=== PATIENT | male | born 1990 | race Caucasian/White ===

== ENCOUNTER 2019-01-25 19:22 | Emergency (ER) | payer OTHER ==
[~2019-01-25] VITALS: Ht 188 cm; Wt 192.8 kg
[2019-01-25] MEDS ORDERED: IV NORMAL SALINE 1000ML BAG 1,000 ML IV ONE (19:30)
[2019-01-25 19:45] LABS: BASO % 1 % (0-3); EOS # 0.1 x10^3/uL (0.0-0.7); EOS % 2 % (0-3); HEMATOCRIT 40.5 % (39.0-53.0); HEMOGLOBIN 13.9 g/dL (13.0-17.5); LYMPH # 1.7 x10^3/uL (1.0-4.8); LYMPH % 26 % (24-48); MEAN CORPUSCULAR HEMOGLOBIN 29 pg (25-35); MEAN CORPUSCULAR HGB CONC 34 g/dL (31-37); MEAN CORPUSCULAR VOLUME 83 fL (79-100); MONO # 0.6 x10^3/uL (0.0-1.1); MONO % 9 % (0-9); NEUT # 3.9 x10^3/uL (1.8-7.7); NEUT % 62 % (31-73); PLATELET COUNT 187 x10^3/uL (140-400); RED BLOOD COUNT 4.89 x10^6/uL (4.30-5.70); RED CELL DISTRIBUTION WIDTH 13.6 % (11.5-14.5); WHITE BLOOD COUNT 6.3 x10^3/uL (4.0-11.0)
[2019-01-25 19:55] LABS: PROTHROMBIN TIME PATIENT 14.3 SEC (11.7-14.0)
[2019-01-25 19:59] LABS: CALCIUM 8.7 mg/dL (8.5-10.1); GFR 89.6; POTASSIUM 3.7 mmol/L (3.5-5.1)
[2019-01-25 20:04] LABS: ALBUMIN 3.7 g/dL (3.4-5.0); ALBUMIN/GLOBULIN RATIO 0.9 (1.0-1.7); MAGNESIUM 1.6 mg/dL (1.8-2.4); TOTAL BILIRUBIN 0.4 mg/dL (0.2-1.0); TOTAL PROTEIN 7.6 g/dL (6.4-8.2)
[2019-01-25 20:46] LABS: BARBITURATES NEG (NEG); BENZODIAZEPINES NEG (NEG); CANNABINOIDS NEG (NEG); COCAINE NEG (NEG); METHADONE NEG (NEG); OPIATES NEG (NEG); PHENCYCLIDINE NEG (NEG)
--- NOTE | 2019-01-25 20:53 | RAD ---
CT Head W/O Contrast: History: Change in mental status with seizure-like activity Comparison: none Axial images were obtained without contrast. The barraza and white matter appears normal and symmetrical for the patients age. There is no mass effect, extraaxial fluid collections or hydrocephalus. There is no gross bleed. There is no focal loss of barraza-white matter distinction to suggest acute ischemia, i.e. stroke. Impression: No acute findings. End impression CT C-Spine without contrast: Clinical History: Seizure-like activity Technique: Axial helical images of the cervical spine were obtained without contrast, axial coronal and sagittal reconstruction was performed. Findings: There is no loss of vertebral body stature. There is no prevertebral soft tissue swelling. The vertebral bodies are well aligned. The C1-C2 relationship is normal. The visualized osseous structures appear normal. There is straightening of the normal cervical lordosis which can be positional or can be secondary to muscle spasm. Evaluation of the central canal is limited without contrast. Impression: No acute findings. Clinical correlation suggested. PQRS Compliance Statement: One or more of the following individualized dose reduction techniques were utilized for this examination: 1. Automated exposure control 2. Adjustment of the mA and/or kV according to patient size 3. Use of iterative reconstruction technique Electronically signed by: Peter Retana III, MD (01/25/2019 8:50 PM) [facility]
[2019-01-25 20:56] LABS: AMPHETAMINE/METHAMPHETAMINE NEG (NEG)
--- NOTE | 2019-01-25 21:23 | PHYS DOC ---
Past Medical History Past Medical History: Hypertension, TIA Past Surgical History: Other Additional Past Surgical Histo: R knee; wisdom teeth Alcohol Use: Occasionally Drug Use: None Adult General Chief Complaint Chief Complaint: ALTERED MENTAL STATUS HPI HPI Patient is a 28-year-old male who presents after seizure-like activity. He was at work when his coworkers saw him pass out, and had a seizure for 5-10 minutes. He was brought in by EMS they did not give him anything for the seizure. She was confused and unable to give a lot of information about what happened. He was feeling healthy before the event occurred. He is complaining of chest tightness that midsternal. He is having blurry vision and cannot see anything far away. He is able to see up close. This is an acute change for him. He is complaining of head pain. 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 Apparently they were able to talk him out of having a seizure. Review of Systems Review of Systems Constitutional: Denies fever or chills Eyes: Denies redness or eye pain HENT: Denies nasal congestion or sore throat Respiratory: Denies cough or shortness of breath Cardiovascular: Reports chest pain, denies palpitations GI: Reports abdominal pain, denies nausea, or vomiting : Denies dysuria or hematuria Musculoskeletal: Denies back pain or joint pain Integument: Denies rash or skin lesions Neurologic: Denies headache, focal weakness, reports vision changes Complete systems were reviewed and found to be within normal limits, except as documented in this note. Current Medications Current Medications Current Medications Medications (Trade) Dose Ordered Sig/Neyda Start Time Stop Time Status Last Admin Dose Admin Lorazepam (Ativan Inj) 0.5 mg 1X ONCE 01/25/19 20:00 01/25/19 20:01 DC 01/25/19 20:18 0.5 MG Magnesium Chloride (Mag Delay) 64 mg DAILY 01/26/19 09:00 01/26/19 09:00 DC Sodium Chloride 1,000 ml @ 1,000 mls/hr 1X ONCE 01/25/19 19:30 01/25/19 20:29 DC 01/25/19 19:36 1,000 MLS/HR Allergies Allergies Allergies Coded Allergies Type Severity Reaction Last Updated Verified No Known Drug Allergies 01/25/19 No Physical Exam Physical Exam Constitutional: Well developed, well nourished, no acute distress, non-toxic appearance, appears confused, does not make eye contact, HENT: Normocephalic, atraumatic, oropharynx moist, Cannot see my fingers 6 inches in front of his face, but not more than a foot away. Eyes: PERRL, EOMI, conjunctiva normal, no discharge Neck: Normal range of motion, no tenderness, supple Cardiovascular: Heart rate normal, regular rhythm Lungs & Thorax: Bilateral breath sounds clear to auscultation, no wheezing Abdomen: Soft, mild tenderness to palpation near umbilicus Skin: Warm, dry, no erythema, no rash Back: No tenderness, no CVA tenderness Extremities: No tenderness, ROM intact, no edema Neurologic: Alert and oriented X 3, normal motor function, normal sensory function, no focal deficits noted Psychologic: Affect normal, judgement normal, mood normal Current Patient Data Vital Signs Vital Signs Date Time Temp Pulse Resp B/P (MAP) Pulse Ox O2 Delivery O2 Flow Rate FiO2 01/25/19 21:54 96 25 98 01/25/19 19:22 97.9 184/91 (122) Room Air 97.9 Lab Values Laboratory Tests Test 01/25/19 19:30 01/25/19 20:33 White Blood Count 6.3 x10^3/uL (4.0-11.0) Red Blood Count 4.89 x10^6/uL (4.30-5.70) Hemoglobin 13.9 g/dL (13.0-17.5) Hematocrit 40.5 % (39.0-53.0) Mean Corpuscular Volume 83 fL (79-100) Mean Corpuscular Hemoglobin 29 pg (25-35) Mean Corpuscular Hemoglobin Concent 34 g/dL (31-37) Red Cell Distribution Width 13.6 % (11.5-14.5) Platelet Count 187 x10^3/uL (140-400) Neutrophils (%) (Auto) 62 % (31-73) Lymphocytes (%) (Auto) 26 % (24-48) Monocytes (%) (Auto) 9 % (0-9) Eosinophils (%) (Auto) 2 % (0-3) Basophils (%) (Auto) 1 % (0-3) Neutrophils # (Auto) 3.9 x10^3/uL (1.8-7.7) Lymphocytes # (Auto) 1.7 x10^3/uL (1.0-4.8) Monocytes # (Auto) 0.6 x10^3/uL (0.0-1.1) Eosinophils # (Auto) 0.1 x10^3/uL (0.0-0.7) Basophils # (Auto) 0.0 x10^3/uL (0.0-0.2) Prothrombin Time 14.3 SEC (11.7-14.0) H Prothrombin Time INR 1.1 (0.8-1.1) PTT 25 SEC (24-38) D-Dimer (Debi) 0.29 ug/mlFEU (0.00-0.50) Sodium Level 136 mmol/L (136-145) Potassium Level 3.7 mmol/L (3.5-5.1) Chloride Level 99 mmol/L (98-107) Carbon Dioxide Level 27 mmol/L (21-32) Anion Gap 10 (6-14) Blood Urea Nitrogen 6 mg/dL (8-26) L Creatinine 1.0 mg/dL (0.7-1.3) Estimated GFR (Cockcroft-Gault) 89.6 BUN/Creatinine Ratio 6 (6-20) Glucose Level 167 mg/dL (70-99) H Lactic Acid Level 2.6 mmol/L (0.4-2.0) H Calcium Level 8.7 mg/dL (8.5-10.1) Magnesium Level 1.6 mg/dL (1.8-2.4) L Total Bilirubin 0.4 mg/dL (0.2-1.0) Aspartate Amino Transferase (AST) 22 U/L (15-37) Alanine Aminotransferase (ALT) 40 U/L (16-63) Alkaline Phosphatase 83 U/L (46-116) Creatine Kinase 85 U/L (39-308) Troponin I Quantitative 0.017 ng/mL (0.000-0.055) Total Protein 7.6 g/dL (6.4-8.2) Albumin 3.7 g/dL (3.4-5.0) Albumin/Globulin Ratio 0.9 (1.0-1.7) L Urine Opiates Screen Neg (NEG) Urine Methadone Screen Neg (NEG) Urine Barbiturates Neg (NEG) Urine Phencyclidine Screen Neg (NEG) Urine Amphetamine/Methamphetamine Neg (NEG) Urine Benzodiazepines Screen Neg (NEG) Urine Cocaine Screen Neg (NEG) Urine Cannabinoids Screen Neg (NEG) Urine Ethyl Alcohol Neg (NEG) Laboratory Tests 01/25/19 19:30 Laboratory Tests 01/25/19 19:30 EKG EKG @1930 NSR at 92bpm, NO ST elevation, QRS 84ms, QT/QTc 334/418ms Radiology/Procedures Radiology/Procedures PROCEDURE: CT HEAD AND CERVICAL SPINE WO CT Head W/O Contrast: History: Change in mental status with seizure-like activity Comparison: none Axial images were obtained without contrast. The barraza and white matter appears normal and symmetrical for the patients age. There is no mass effect, extraaxial fluid collections or hydrocephalus. There is no gross bleed. There is no focal loss of barraza-white matter distinction to suggest acute ischemia, i.e. stroke. Impression: No acute findings. End impression CT C-Spine without contrast: Clinical History: Seizure-like activity Technique: Axial helical images of the cervical spine were obtained without contrast, axial coronal and sagittal reconstruction was performed. Findings: There is no loss of vertebral body stature. There is no prevertebral soft tissue swelling. The vertebral bodies are well aligned. The C1-C2 relationship is normal. The visualized osseous structures appear normal. There is straightening of the normal cervical lordosis which can be positional or can be secondary to muscle spasm. Evaluation of the central canal is limited without contrast. Impression: No acute findings. Clinical correlation suggested. PQRS Compliance Statement: One or more of the following individualized dose reduction techniques were utilized for this examination: 1. Automated exposure control 2. Adjustment of the mA and/or kV according to patient size 3. Use of iterative reconstruction technique Electronically signed by: Peter Retana III, MD (01/25/2019 8:50 PM) [facility] PROCEDURE: PORTABLE CHEST 1V AP portable chest radiograph 01/25/2019 Clinical History: Cough. An AP erect portable digital radiograph of the chest was obtained. No previous studies are available for comparison. The cardiac and mediastinal silhouettes are within normal limits in size and configuration. No acute pulmonary infiltrate is seen. No pleural effusion or pneumothorax is noted. The osseous structures are grossly intact. IMPRESSION: No acute abnormality is seen. Electronically signed by: Elijah Beck MD (01/26/2019 5:17 AM) [facility] Course & Med Decision Making Course & Med Decision Making Pertinent Labs and Imaging studies reviewed. (See chart for details) Mr. Cohen is a 28-year-old male who presents with generalized activity. He is at work within the past his coworker said that he had a seizure 5-10 minutes with generalized shaking. He is not giving any medication this year. Upon arrival he is continues chest tightness, head pain, and blurry vision. On physical exam does not make eye contact and can only see my fingers when they are 6 inches from his face. Heart and lung sounds are normal. No cervical spine tenderness. No focal neurological deficit. CT was headache and neck and chest x- ray showed no acute abnormalities. Labs showed an elevated lactic acid which could indicate he seizure. Hypomagnesemia and that was replaced. No other acute process is identified on laboratory evaluation. Due to his seizure-like activity he should follow up with neurologist for further evaluation. Patient stable for discharge with outpatient follow-up with PCP. Discussed findings and plan with patient and family, who acknowledge understanding and agreement. Dragon Disclaimer Dragon Disclaimer This electronic medical record was generated, in whole or in part, using a voice recognition dictation system. Departure Departure Impression: Primary Impression: Seizure-like activity Additional Impressions: Hypomagnesemia Lactic acidosis Disposition: 01 HOME, SELF-CARE Condition: STABLE Referrals: SOBEIDA MORALES (PCP) RAJEEV LUGO MD Patient Instructions: Hypomagnesemia, Lactic Acid, Lactate, Seizure, Adult, Sbep-ig-Ervy Additional Instructions: Increase fluid hydration. PLEASE REFRAIN FROM DRIVING. You must be seizure free for 6 months or cleared by your neurologist. Problem Qualifiers MAKENZIE MACKENZIE DO Jan 25, 2019 21:23
[2019-01-25 21:54] VITALS: BP 148/78
--- NOTE | 2019-01-26 05:19 | RAD ---
AP portable chest radiograph 01/25/2019 Clinical History: Cough. An AP erect portable digital radiograph of the chest was obtained. No previous studies are available for comparison. The cardiac and mediastinal silhouettes are within normal limits in size and configuration. No acute pulmonary infiltrate is seen. No pleural effusion or pneumothorax is noted. The osseous structures are grossly intact. IMPRESSION: No acute abnormality is seen. Electronically signed by: Elijah Beck MD (01/26/2019 5:17 AM) [facility]
--- NOTE | 2019-01-26 06:47 | EKG ---
[facility] [address] [place] [address] Test Date: 2019-01-25 Test Time: 19:30:10 Pat Name: LASHAUN ESPINOZA Department: Room: Gender: M Lab Associate: : 1990 Requested By: MAKENZIE MACKENZIE Order Number: [id number] Reading MD: Measurements Intervals [place] Rate: 92 P: 66 HI: 168 QRS: 24 QRSD: 84 T: 27 QT: 334 QTc: 418 Interpretive Statements SINUS RHYTHM NORMAL ECG RI6.01 Unconfirmed report No previous ECG available for comparison
[2019-01-26] MEDS ORDERED: MAGNESIUM CHLORIDE ER 64 MG TABLET.ER PO SCH (09:00)
== END 2019-01-25 21:50 | disposition home or self-care (01) ==
LOC: ER 19:22
DX: R56.9 Unspecified convulsions (principal); E83.42 Hypomagnesemia; E87.2 Acidosis; R51 Headache; H53.8 Other visual disturbances; R41.0 Disorientation, unspecified; I10 Essential (primary) hypertension; Z86.73 Personal history of transient ischemic attack (TIA), and cerebral infarction without residual deficits
CPT/HCPCS: 36415; 70450; 71045; 72125; 80053; 80307; 82550; 83605; 83735; 84484; 85025; 85379; 85610; 85730; 93005; 96361; 96374; 99285; J2060; J7030